=== PATIENT | female | born 1965 | race African-American/Black ===

== ENCOUNTER 2016-12-23 15:27 | Observation (INO) | payer MEDICARE ==
[~2016-12-23] VITALS: Ht 167.6 cm; Wt 62.5 kg
[2016-12-23 15:27] VITALS: BP 183/95; PULSE 98; RESP 20; TEMP 98; O2SAT 100
--- NOTE | 2016-12-23 16:31 | PD ---
HPI Chief Complaint: Chest Pain Time Seen by Provider: 16:29 Travel History International Travel<30 days: No Contact w/Intl Traveler<30days: No Traveled to known affect area: No History of Present Illness HPI 51-year-old female presents to the emergency department for evaluation of left- sided neck pain that radiates to the left chest and down the left arm. She also she has some paresthesias. Patient reports history of hypertension and multiple sclerosis. She states that she does a lot of pain, but this was worrisome due to location for her. Patient states the pain is mildly reproduced with movement of the neck. She denies any fevers or chills. No vomiting. No abdominal pain. No recent travel or surgeries. Patient denies any chance of . Patient denies any IVDU. Patient states this pain started today at 3 PM. [facility] Social History Alcohol Use: No Tobacco Use: No Substance Use: No Review of Systems Except as stated in HPI: all other systems reviewed are Neg General / Constitutional: No: Fever, Chills Eyes: No: Foreign Body Sensation HENT: No: Headaches Cardiovascular: Positive: Chest Pain or Discomfort, No: Syncope Gastrointestinal: No: Vomiting, Abdominal Pain Genitourinary: No: Dysuria Neurologic: No: Syncope, Change in Mentation Psychiatric: No: Suicidal Ideations Physical Exam Narrative GENERAL: Well-developed well-nourished female patient, ambulatory. Afebrile. SKIN: Warm and dry. HEAD: Normocephalic. Atraumatic. EYES: No scleral icterus. No injection or drainage. NECK: Supple, trachea midline. No JVD or lymphadenopathy. CARDIOVASCULAR: Regular rate and rhythm without murmurs, gallops, or rubs. RESPIRATORY: Breath sounds equal bilaterally. No accessory muscle use. Lungs sounds are clear to auscultation. GASTROINTESTINAL: Abdomen soft, non-tender, nondistended. MUSCULOSKELETAL: No cyanosis, or edema. BACK: Nontender without obvious deformity. No CVA tenderness. Data Data Last Documented VS Vital Signs Date Time Temp Pulse Resp B/P Pulse Ox O2 Delivery O2 Flow Rate FiO2 12/23/16 15:27 98.0 98 20 183/95 100 Room Air Orders Electrocardiogram (12/23/16 ) Basic Metabolic Panel (Bmp) (12/23/16 16:28) Ckmb (Isoenzyme) Profile (12/23/16 16:28) Complete Blood Count With Diff (12/23/16 16:28) Magnesium (Mg) (12/23/16 16:28) Troponin I (12/23/16 16:28) Chest, Pa & Lat (12/23/16 16:28) Labs Laboratory Tests Test 12/23/16 16:48 White Blood Count 8.0 TH/MM3 Red Blood Count 4.03 MIL/MM3 Hemoglobin 12.7 GM/DL Hematocrit 36.9 % Mean Corpuscular Volume 91.5 FL Mean Corpuscular Hemoglobin 31.5 PG Mean Corpuscular Hemoglobin 34.4 % Concent Red Cell Distribution Width 13.1 % Platelet Count 298 TH/MM3 Mean Platelet Volume 9.3 FL Neutrophils (%) (Auto) 57.6 % Lymphocytes (%) (Auto) 32.6 % Monocytes (%) (Auto) 7.6 % Eosinophils (%) (Auto) 1.3 % Basophils (%) (Auto) 0.9 % Neutrophils # (Auto) 4.6 TH/MM3 Lymphocytes # (Auto) 2.6 TH/MM3 Monocytes # (Auto) 0.6 TH/MM3 Eosinophils # (Auto) 0.1 TH/MM3 Basophils # (Auto) 0.1 TH/MM3 CBC Comment DIFF FINAL Differential Comment Sodium Level 139 MEQ/L Potassium Level 4.1 MEQ/L Chloride Level 105 MEQ/L Carbon Dioxide Level 28.4 MEQ/L Anion Gap 6 MEQ/L Blood Urea Nitrogen 14 MG/DL Creatinine 0.86 MG/DL Estimat Glomerular Filtration 70 ML/MIN Rate Random Glucose 103 MG/DL Calcium Level 8.9 MG/DL Magnesium Level 2.2 MG/DL Total Creatine Kinase 98 U/L Troponin I LESS THAN 0.02 NG/ML [facility] Medical Decision Making Medical Screen Exam Complete: Yes Emergency Medical Condition: Yes Medical Record Reviewed: Yes Differential Diagnosis ACS versus musculoskeletal pain versus pneumonia versus MS exacerbation Narrative Course 51-year-old female presents to the emergency department for evaluation of left neck pain that radiates down the left arm to the left chest. She states this started approximately 3 PM today. EKG, CBC, BMP, CK, troponin, magnesium, chest x-ray are ordered and pending. Workup is initiated in triage. Once a medical bed becomes available, patient will be transferred and care assumed by that provider. Jolanta Alston Dec 23, 2016 16:31
--- NOTE | 2016-12-23 17:02 | RADRPT ---
EXAM DATE/TIME: 12/23/2016 16:45 [facility] COMPARISON: No previous studies available for comparison. INDICATIONS : Chest pain that started today. MEDICAL HISTORY : Hypertension. SURGICAL HISTORY : None. ENCOUNTER: Initial ACUITY: 1 day PAIN SCORE: 8/10 LOCATION: Bilateral chest FINDINGS: PA and lateral views of the chest demonstrate the lungs to be symmetrically aerated without evidence of mass, infiltrate or effusion. The cardiomediastinal contours are unremarkable. Osseous structure s are intact. CONCLUSION: No acute disease. Chad Leggett MD on December 23, 2016 at 17:01 Board Certified Radiologist. This report was verified electronically.
[2016-12-23 17:11] LABS: AUTOMATED NEUTROPHIL # 4.6 TH/MM3 (1.8-7.7); BASOPHIL # 0.1 TH/MM3 (0-0.2); BASOPHIL % 0.9 % (0.0-2.0); EOSINOPHIL # 0.1 TH/MM3 (0-0.4); EOSINOPHIL % 1.3 % (0.0-4.0); HEMATOCRIT 36.9 % (35.0-46.0); HEMO FLAGS DIFF FINAL; LYMPH % 32.6 % (9.0-44.0); LYMPHOCYTE # 2.6 TH/MM3 (1.0-4.8); MEAN CELL VOLUME 91.5 FL (80.0-100.0); MEAN CORPUSCULAR HEMOGLOBIN 31.5 PG (27.0-34.0); MEAN CORPUSCULAR HGB CONC 34.4 % (32.0-36.0); MONO % 7.6 % (0.0-8.0); NEUT % 57.6 % (16.0-70.0); PLATELET COUNT 298 TH/MM3 (150-450); RED BLOOD COUNT 4.03 MIL/MM3 (4.00-5.30); RED CELL DISTRIBUTION WIDTH 13.1 % (11.6-17.2)
[2016-12-23 17:25] LABS: ANION GAP 6 MEQ/L (5-15); BICARBONATE 28.4 MEQ/L (21.0-32.0); CHLORIDE 105 MEQ/L (98-107); GLOMERULAR FILTRATION RATE 70 ML/MIN (>89); MAGNESIUM 2.2 MG/DL (1.5-2.5); SODIUM (NA) 139 MEQ/L (136-145)
[2016-12-23 17:32] LABS: BLOOD UREA NITROGEN 14 MG/DL (7-18); CREATINE KINASE 98 U/L (26-192); POTASSIUM 4.1 MEQ/L (3.5-5.1)
[2016-12-23] MEDS ORDERED: ATEN50TA PO (20:09)
[2016-12-23] MEDS ORDERED: GABA600T PO (20:09)
[2016-12-23] MEDS ORDERED: BACL20TA PO (20:09)
[2016-12-23] MEDS ORDERED: AMLO10TA2 PO (20:09)
[2016-12-23] MEDS ORDERED: COPA20KI SQ (20:09)
[2016-12-23] MEDS ORDERED: ZOLP10TA3 PO (20:09)
--- NOTE | 2016-12-23 20:42 | PD ---
Physical Exam Narrative I, Dr. Mccarthy, have reviewed the advance practice practitioner's documentation and am in agreement, met with the patient face to face, made the diagnosis, and the medical decision making was done by me. *My assessment and Findings: Atypical chest pain vs. cervical radiculopathy vs. musculoskeletal pain 51yo F with PMH of multiple sclerosis, HTN presents to the ED with c/o chest tightness, left neck pain and numbness in left fingers that started today. Pt states she has spasms in other parts of her body but never had pain like this in her chest. Pt states last stress test was about 10 years ago. Labs reviewed , no leukocytosis. Troponin negative. CXR showed no acute disease. Pt does have risk factors and even though presentation is atypical, feel that pt should be admitted for observation in chest pain center for serial EKG and cardiac enzyme. Data Data Last Documented VS Vital Signs Date Time Temp Pulse Resp B/P Pulse Ox O2 Delivery O2 Flow Rate FiO2 12/23/16 19:56 78 18 98 Room Air 12/23/16 15:27 98.0 183/95 Orders Electrocardiogram (12/23/16 ) Basic Metabolic Panel (Bmp) (12/23/16 16:28) Ckmb (Isoenzyme) Profile (12/23/16 16:28) Complete Blood Count With Diff (12/23/16 16:28) Magnesium (Mg) (12/23/16 16:28) Troponin I (12/23/16 16:28) Chest, Pa & Lat (12/23/16 16:28) Activity Bed Rest With Brp (12/23/16 20:37) Vital Signs (Adult) Q4H (12/23/16 20:37) Cardiac Rhythm .As Directed (12/23/16 20:37) ^ Notify Dr: Other .PRN (12/23/16 20:37) ^ Notify . Parameters (12/23/16 20:37) Resp Oxygen Nasal Cannula (12/23/16 ) Ckmb (Isoenzyme) Profile (12/23/16 20:37) Ckmb (Isoenzyme) Profile (12/23/16 23:37) Troponin I (12/23/16 20:37) Troponin I (12/23/16 23:37) Electrocardiogram (12/23/16 20:37) Electrocardiogram (12/23/16 23:37) ^ Obtain (12/23/16 20:37) [employer]er / Telemetry [id number] (12/23/16 20:37) Admit Order (Ed Use Only) (12/23/16 20:37) Labs Laboratory Tests Test 12/23/16 16:48 White Blood Count 8.0 TH/MM3 Red Blood Count 4.03 MIL/MM3 Hemoglobin 12.7 GM/DL Hematocrit 36.9 % Mean Corpuscular Volume 91.5 FL Mean Corpuscular Hemoglobin 31.5 PG Mean Corpuscular Hemoglobin 34.4 % Concent Red Cell Distribution Width 13.1 % Platelet Count 298 TH/MM3 Mean Platelet Volume 9.3 FL Neutrophils (%) (Auto) 57.6 % Lymphocytes (%) (Auto) 32.6 % Monocytes (%) (Auto) 7.6 % Eosinophils (%) (Auto) 1.3 % Basophils (%) (Auto) 0.9 % Neutrophils # (Auto) 4.6 TH/MM3 Lymphocytes # (Auto) 2.6 TH/MM3 Monocytes # (Auto) 0.6 TH/MM3 Eosinophils # (Auto) 0.1 TH/MM3 Basophils # (Auto) 0.1 TH/MM3 CBC Comment DIFF FINAL Differential Comment Sodium Level 139 MEQ/L Potassium Level 4.1 MEQ/L Chloride Level 105 MEQ/L Carbon Dioxide Level 28.4 MEQ/L Anion Gap 6 MEQ/L Blood Urea Nitrogen 14 MG/DL Creatinine 0.86 MG/DL Estimat Glomerular Filtration 70 ML/MIN Rate Random Glucose 103 MG/DL Calcium Level 8.9 MG/DL Magnesium Level 2.2 MG/DL Total Creatine Kinase 98 U/L Troponin I LESS THAN 0.02 NG/ML [facility] Supervised Visit with [facility]: Yes Interpretation(s) EKG: NSR 76bpm. Normal axis. No ST segment elevation or depression. Diagnosis Primary Impression: Chest pain Qualified Code: R07.9 - Chest pain, unspecified type Admitting Information Admitting Physician Requests: Nia Meyers DO Dec 23, 2016 20:42
[2016-12-23] MEDS ORDERED: ASPIRIN 325 MG TAB PO ONE (20:45)
[2016-12-23] MEDS ORDERED: NITROGLYCERIN 0.4 MG SL 25 TABS/BTL SL PRN (20:45)
[2016-12-23 21:40] VITALS: O2SAT 98
[2016-12-24 00:22] VITALS: BP 163/80; PULSE 73; RESP 18; TEMP 98.1; O2SAT 97
[2016-12-24 01:39] LABS: CREATINE KINASE 91 U/L (26-192)
[2016-12-24] MEDS ORDERED: ZOLPIDEM TARTRATE 10 MG TAB PO PRN (07:30)
--- NOTE | 2016-12-24 07:46 | HHI.HP ---
HPI Primary Care Physician Non-Staff Chief Complaint Chest pain History of Present Illness This is a 51-year-old female that presents to the ED via private vehicle with her with a complaint of developing a discomfort in left side of her neck with then a tingling and numbness sensation radiating down her left arm and into the left upper chest. By the same time she also developed a tightness in her left upper chest. She states she's had all the symptoms in the past many at times however it she is a 9 this location. This concerned her. She has history of multiple sclerosis and these type of sensations are not unusual. She states left upper chest is tender. The symptoms began 2:00 yesterday afternoon and are still present. No associated shortness breath, nausea, or diaphoresis. She found nothing to worsen or improve her symptoms. Denies recent illnesses. Denies fevers or chills. She states she had a stress test about 10 years ago. There is nuclear and was normal. Her primary care physician and neurologist are in [place]. Review of Systems General: Patient denies fevers, chills recent, and recent travel HEENT: Patient denies headache, sore throat, difficulty swallowing. Cardiovascular: Has the chest discomfort as mentioned above. Denies sensation of heart beating rapidly or irregularly. No syncope. Denies diaphoresis Respiratory: Denies shortness of breath or inspirational chest discomfort. Denies coughing wheezing or hemoptysis. GI: Patient denies nausea, vomiting, diarrhea, abdominal pain, bloody stools. Musculoskeletal: Denies calf pain or swelling. She chronically has different types of discomforts with her multiple sclerosis. Neurovascular: Patient has chronic weakness in her lower extremities from her multiple sclerosis. Chronically has numbness and tingling sensations throughout her body however the location of her numbness and tingling concerned her yesterday. Denies headache. Endocrine: Denies polyuria and polydipsia. Hematologic: Denies easy bruising. Skin: Denies rash or itching. Past Family Social History Allergies: Coded Allergies: No Known Allergies (Unverified , 12/23/16) Past Medical History Multiple sclerosis, right sided thoracic outlet syndrome, and hypertension. Denies known CAD, hyperlipidemia, and diabetes. Past Surgical History Noncontributory. Reported Medications Reported Meds & Active Scripts Active Reported Zolpidem (Zolpidem Tartrate) 10 Mg Tab 10 Mg PO HS PRN Copaxone Inj (Glatiramer Inj) 20 Mg/Ml Syr 20 Mg SQ DAILY Baclofen 20 Mg Tab 20 Mg PO BID Gabapentin 600 Mg Tab 600 Mg PO TID Amlodipine (Amlodipine Besylate) 10 Mg Tab 10 Mg PO DAILY Atenolol 50 Mg Tab 50 Mg PO DAILY Active Ordered Medications Current Medications Medications (Trade) Dose Ordered Sig/Stefania Route Start Time Stop Time Status Last Admin (Nitrostat Sl) 0.4 mg Q5M PRN SL 12/23/16 20:45 (Norvasc) 10 mg DAILY PO 12/24/16 09:00 UNV (Tenormin) 50 mg DAILY PO 12/24/16 09:00 UNV (Lioresal) 20 mg BID PO 12/24/16 09:00 UNV (Neurontin) 600 mg TID PO 12/24/16 09:00 UNV (Ambien) 10 mg HS PRN PO 12/24/16 07:30 UNV Family History Denies family history of CAD. Social History Patient is a lifetime nonsmoker. Denies alcohol or illicit drugs. She is with 2 grown children. Physical Exam Vital Signs Vital Signs Date Time Temp Pulse Resp B/P Pulse Ox O2 Delivery O2 Flow Rate FiO2 12/24/16 00:22 98.1 73 18 163/80 97 12/23/16 21:40 98 21 12/23/16 19:56 78 18 98 Room Air 12/23/16 15:27 98.0 98 20 183/95 100 Room Air Physical Exam GENERAL: This is a well-nourished, well-developed patient, in no apparent distress. Patient speaks in clear complete sentences. Patient is pleasant. HEENT: Head is atraumatic and normocephalic. Neck is supple without lymphadenopathy and trachea is midline. No JVD or carotid bruits. CARDIOVASCULAR: Regular rate and rhythm without murmurs, gallops, or rubs. RESPIRATORY: Left upper chest wall is tender to palpate. This is the area that has been bothering her. Clear to auscultation. Breath sounds equal bilaterally. No wheezes, rales, or rhonchi. No use of accessory muscles. GASTROINTESTINAL: Abdomen is nontender, nondistended. Abdomen soft. No obvious pulsatile mass or bruit. No CVA tenderness. Strong femoral pulses bilaterally. Normal bowel sounds in all quadrants. MUSCULOSKELETAL: Patient is moving upper and lower extremities freely. No calf tenderness or edema, no Homans sign. Strong pulses in upper and lower extremities. NEUROLOGICAL: Patient is alert and oriented. Cranial nerves 2-12 are grossly intact. No focal deficits and speech is clear. SKIN: No rash and turgor is normal. Laboratory Laboratory Tests Test 12/23/16 12/23/16 12/24/16 16:48 21:05 00:15 White Blood Count 8.0 Red Blood Count 4.03 Hemoglobin 12.7 Hematocrit 36.9 Mean Corpuscular Volume 91.5 Mean Corpuscular Hemoglobin 31.5 Mean Corpuscular Hemoglobin 34.4 Concent Red Cell Distribution Width 13.1 Platelet Count 298 Mean Platelet Volume 9.3 Neutrophils (%) (Auto) 57.6 Lymphocytes (%) (Auto) 32.6 Monocytes (%) (Auto) 7.6 Eosinophils (%) (Auto) 1.3 Basophils (%) (Auto) 0.9 Neutrophils # (Auto) 4.6 Lymphocytes # (Auto) 2.6 Monocytes # (Auto) 0.6 Eosinophils # (Auto) 0.1 Basophils # (Auto) 0.1 CBC Comment DIFF FINAL Differential Comment Sodium Level 139 Potassium Level 4.1 Chloride Level 105 Carbon Dioxide Level 28.4 Anion Gap 6 Blood Urea Nitrogen 14 Creatinine 0.86 Estimat Glomerular Filtration 70 Rate Random Glucose 103 Calcium Level 8.9 Magnesium Level 2.2 Total Creatine Kinase 98 91 Troponin I LESS THAN 0.02 LESS THAN 0.02 LESS THAN 0.02 Result Diagram: 12/23/16 1648 12/23/16 1648 Imaging Last 24 hours Impressions Chest X-Ray 12/23/16 1628 Signed Impressions: Service Date/Time: Friday, December 23, 2016 16:45 - CONCLUSION: No acute disease. Chad Leggett MD Course EKGs have sinus rhythm without significant ST segment depressions or elevations. Assessment and Plan Assessment and Plan * Chest pain: Patient's discomfort appears to be atypical. She had serial cardiac enzymes and EKGs for ruling out purposes. She will be seen by Dr. Dileep Mckenzie of cardiology in the chest pain center and he will determine if any further cardiac testing is needed. * Hypertension: Continue current medication. * Multiple sclerosis: Continue her nightly injections as instructed by her neurologist. Patient is stable at this time. She is agreeable to this plan. Librado Barrios Dec 24, 2016 07:46
[2016-12-24 08:01] VITALS: BP 146/80; PULSE 94; RESP 16; TEMP 98.1; O2SAT 100
[2016-12-24] MEDS ORDERED: BACLOFEN 20 MG TAB PO SCH (09:00)
[2016-12-24] MEDS ORDERED: ATENOLOL 50 MG TAB PO SCH (09:00)
[2016-12-24] MEDS ORDERED: GABAPENTIN 300 MG CAP PO SCH (09:00)
--- NOTE | 2016-12-24 09:05 | HHI.DCPOC ---
Discharge Care Plan Diagnosis: (1) Chest pain, atypical (2) MS (multiple sclerosis) (3) Hypertension Goals to Promote Your Health * To prevent worsening of your condition and complications * To maintain your health at the optimal level Directions to Meet Your Goals Take your medications as prescribed Follow your dietary instruction Follow activity as directed Keep your appointments as scheduled Take your immunizations and boosters as scheduled If your symptoms worsen call your PCP, if no PCP go to Urgent Care Center or Emergency Room Smoking is Dangerous to Your Health. Avoid second hand smoke Call the 24-hour hour crisis hotline for domestic abuse at Librado Barrios Dec 24, 2016 09:04
--- NOTE | 2016-12-24 10:47 | EKG ---
Date Performed: 12/23/2016 Time Performed: 15:40:30 PTAGE: 51 years EKG: Sinus rhythm NORMAL ECG NO PREVIOUS TRACING DOCTOR: Juancarlos Vergara Interpretating Date/Time 12/24/2016 10:45:46
--- NOTE | 2016-12-25 14:32 | EKG ---
Date Performed: 12/23/2016 Time Performed: 22:33:09 PTAGE: 51 years EKG: Sinus rhythm NORMAL ECG PREVIOUS TRACING : 12/23/2016 15.40 Since previous tracing, no significant change noted DOCTOR: Feliciano Jack Interpretating Date/Time 12/25/2016 14:31:09
--- NOTE | 2016-12-25 14:32 | EKG ---
Date Performed: 12/24/2016 Time Performed: 00:35:16 PTAGE: 51 years EKG: Sinus rhythm VOLTAGE CRITERIA FOR LVH PROBABLE INFERIOR MYOCARDIAL INFARCTION ABNORMAL ECG PREVIOUS TRACING : 12/23/2016 22.33 Compared to previous tracing ,Q wave in lead 3 is larger. DOCTOR: Feliciano Jack Interpretating Date/Time 12/25/2016 14:30:44
== END 2016-12-24 10:40 | disposition home or self-care (01) ==
LOC: NEPA 15:27 → NEDA 20:38 → NEPHCDU 12-24 00:11
PROVIDERS: ADMIT Internal Medicine Interventional Cardiology; ATTEND Internal Medicine Interventional Cardiology
DX: R07.9 Chest pain, unspecified (principal); G35 Multiple sclerosis; I10 Essential (primary) hypertension
CPT/HCPCS: 71020; 80048; 82550; 83735; 84484; 85025; 93005; G0378